=== PATIENT | male | born 1985 | race Caucasian/White ===

== ENCOUNTER → 2018-04-25 | Outpatient (CLI) | payer OTHER ==
--- NOTE | 2018-04-25 14:51 | XR ---
EXAMINATION TYPE: XR lumbar spine 2 or 3V DATE OF EXAM: 04/25/2018 CLINICAL HISTORY: Low back pain due to injury one day ago. TECHNIQUE: Frontal and lateral images of the lumbar spine are obtained. COMPARISON: None FINDINGS: There are 5 lumbar type vertebral bodies identified. The lumbar spine shows satisfactory alignment without evidence of acute fracture or dislocation. Vertebral body heights and disk space he ights are within normal limits. No significant spurring is seen. The overlying soft tissue appears u nremarkable. IMPRESSION: No acute fracture or dislocation is seen in the lumbar spine.
== END | disposition home or self-care (01) ==
LOC: RADXRMAIN 14:12
PROVIDERS: ATTEND Emergency Medicine
DX: S33.5XXA Sprain of ligaments of lumbar spine, initial encounter (principal)
CPT/HCPCS: 72100

== ENCOUNTER → 2019-04-22 | Outpatient (CLI) | payer BC ==
--- NOTE | 2019-04-22 16:54 | CT ---
EXAMINATION TYPE: CT wrist RT wo con DATE OF EXAM: 04/22/2019 COMPARISON: None HISTORY: Pain Rt wrist CT DLP: 76.4 mGycm Automated exposure control for dose reduction was used. TECHNIQUE: Axial images 2 mm thick sections. Reconstructed images in the coronal and sagittal planes. FINDINGS: A screw transverses a scaphoid fracture. There are smooth margins along the old fracture line. Findin gs are compatible with nonunion of the fracture. There is some mild prominence of the scapholunate space adjacent to the radius which could indicate a scapholunate ligament disruption. No additional fractures are evident. IMPRESSION: NONUNION OF THE MID SCAPHOID FRACTURE WITH A SCREW TRANSVERSING THE OLD FRACTURE LINE.
== END ==
LOC: RADCTMAIN 08:02
PROVIDERS: ATTEND Orthopaedic Surgery
DX: S62.001K Unspecified fracture of navicular [scaphoid] bone of right wrist, subsequent encounter for fracture with nonunion (principal)

== ENCOUNTER → 2019-05-21 | Outpatient (CLI) | payer BC | END | disposition home or self-care (01) | LOC: LABWHC1 11:33 | PROVIDERS: ATTEND Orthopaedic Surgery | DX: E55.9 Vitamin D deficiency, unspecified (principal); M25.531 Pain in right wrist; S62.024D Nondisplaced fracture of middle third of navicular [scaphoid] bone of right wrist, subsequent encounter for fracture with routine healing; Z48.89 Encounter for other specified surgical aftercare | CPT/HCPCS: 36415; 82306 ==

== ENCOUNTER → 2019-08-26 | Outpatient (CLI) | payer BC ==
--- NOTE | 2019-08-26 14:35 | CT ---
EXAMINATION TYPE: CT wrist RT wo con DATE OF EXAM: 08/26/2019 COMPARISON: 04/22/2019 HISTORY: 34-year-old male with right wrist pain after fracture and surgery. TECHNIQUE: Contiguous axial scanning of the right without IV contrast. Coronal and sagittal reconstru ctions performed. 3-D reconstructions generated on a dedicated independent workstation. CT DLP: 223 mGycm Automated exposure control for dose reduction was used. FINDINGS: Focal lucency within the distal radial metaphysis suggesting site of bone graft harvest. Seems to be some widening at the scapholunate interval that could reflect injury to the scapholunate ligament. Some TFC calcifications and minimal synovial calcifications are present. Removal of the previous fixation screw with the placement of a new screw across the patient's mid sca phoid waist fracture. Bony bridging is seen across the mid aspect of the fracture but with persistent fracture lucency seen along the dorsal and volar aspects. Osteopenia. IMPRESSION: 1. BONE GRAFT HARVESTING SITE DISTAL RADIAL METAPHYSIS. 2. REMOVAL OF THE PREVIOUS FIXATION SCREW. PLACEMENT OF A NEW SCREW ACROSS THE MID SCAPHOID WAIST FRA CTURE. PARTIAL BONY BRIDGING IS PRESENT ALONG THE MID ASPECT OF THE FRACTURE WITH PERSISTENT FRACTURE LINE SEEN ALONG BOTH THE DORSAL AND VOLAR ASPECTS. 3. THERE MAY BE SOME WIDENING AT THE SCAPHOLUNATE INTERVAL RAISING POSSIBILITY OF SCAPHOLUNATE LIGAME NT INJURY.
== END | disposition home or self-care (01) ==
LOC: RADCTMAIN 12:24
PROVIDERS: ATTEND Orthopaedic Surgery
DX: S62.024D Nondisplaced fracture of middle third of navicular [scaphoid] bone of right wrist, subsequent encounter for fracture with routine healing (principal); Z48.89 Encounter for other specified surgical aftercare

== ENCOUNTER → 2019-09-02 | Outpatient (CLI) | payer BC ==
[2019-09-02 07:00] LABS: HCT 46.6 % (39.0-53.0); HGB 15.7 gm/dL (13.0-17.5); MCH 30.6 pg (25.0-35.0); MCHC 33.7 g/dL (31.0-37.0); MCV 90.8 fL (80.0-100.0); Mean Platelet Volume 6.7; Platelet Count 277 k/uL (150-450); RBC 5.13 m/uL (4.30-5.90); RDW 12.4 % (11.5-15.5)
[2019-09-02 08:26] LABS: Appearance,Urine Clear (Clear); Bilirubin,Urine Negative (Negative); Blood,Urine Negative (Negative); Color,Urine Yellow; Glucose,Urine (UA) Negative (Negative); Ketones,Urine Negative (Negative); Leukocyte Esterase,Urine Negative (Negative); Nitrite,Urine Negative (Negative); PH, Urine 5.5 (5.0-8.0); Protein,Urine Negative (Negative); Specific Gravity,Urine 1.028 (1.001-1.035); Urobilinogen,Urine <2.0 mg/dL (<2.0)
[2019-09-02 10:36] LABS: African American GFR (CKD) 127.8 (60.0-200.0); Albumin 4.4 g/dL (3.80-4.90); Albumin/Globulin Ratio 2.1 (1.60-3.17); Anion Gap 6.9 mmol/L (4.00-12.00); BUN/Creat Ratio 16.67 Ratio (12.00-20.00); Carbon Dioxide 28.1 mmol/L (21.6-31.8); Globulin 2.1 g/dL (1.6-3.3); Non-African American GFR(CKD) 110.3 (60.0-200.0); Phosphorus 5.1 mg/dL (2.4-5.1); Total Bilirubin 0.8 mg/dL (0.3-1.2); Total Protein 6.5 g/dL (6.2-8.2)
== END | disposition home or self-care (01) ==
LOC: LABWHC1 06:38
PROVIDERS: ATTEND Orthopaedic Surgery
DX: S62.024D Nondisplaced fracture of middle third of navicular [scaphoid] bone of right wrist, subsequent encounter for fracture with routine healing (principal); M25.531 Pain in right wrist; Z48.89 Encounter for other specified surgical aftercare
CPT/HCPCS: 36415; 80053; 81003; 82306; 82310; 82652; 83970; 84100; 85027

== ENCOUNTER → 2020-05-23 | Outpatient (CLI) | payer BC ==
--- NOTE | 2020-05-23 11:48 | CT ---
EXAMINATION TYPE: CT wrist RT wo con DATE OF EXAM: 05/23/2020 COMPARISON: 08/26/1999 HISTORY: Pain Rt Wrist CT DLP: 79.[address] of the right wrist with reconstruction imaging. TECHNIQUE: Unenhanced CT of the right shoulder was performed with bone and soft tissue window setting s submitted in the axial coronal and sagittal planes. At a separate workstation 3-[id number] TR imaging was o btained. FINDINGS: Previously Noted scaphoid waist fracture with screw fixation redemonstrated with evidence of partial nonunion. Focal lucency noted distal radial metaphysis compatible with bone graft harvest site. Focal lucency within the lunate compatible with bone cyst. No evidence for acute fracture at this time. Sc apholunate widening noted down measuring approximately 4 mm may reflect ligamentous injury. IMPRESSION: 1. 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
== END | disposition home or self-care (01) ==
LOC: RADCTMAIN 10:44
PROVIDERS: ATTEND Orthopaedic Surgery
DX: Z47.89 Encounter for other orthopedic aftercare (principal); S62.024K Nondisplaced fracture of middle third of navicular [scaphoid] bone of right wrist, subsequent encounter for fracture with nonunion; Z98.890 Other specified postprocedural states

== ENCOUNTER → 2021-10-23 | Outpatient (CLI) | payer BC ==
--- NOTE | 2021-10-23 12:17 | EST ---
EXERCISE STRESS AGE: 36 SEX: M HT: 6'4" WT: 190 lbs. PROTOCOL: Shahbaz STAGE: 5 DURATION OF EXERCISE: 15:00 HEART RATE REST: 66 BLOOD PRESSURE REST: 143/100 MAXIMUM HEART RATE ACHIEVED: 181 MAXIMUM BLOOD PRESSURE: 196/92 85% MPHR: 156 100% MPHR: 183 METS: 14.9 INDICATIONS: Chest pain CLINICAL INFORMATION: Baseline EKG revealed normal sinus rhythm without significant ST-T changes. Patient walked for 15 minutes on a standard Shahbaz protocol, achieved a maximal heart rate of 183 beats per minute, which is 100% of predicted maximal. There was a lot of baseline artifact as patient exercised, but no ST-segment changes to indicate ischemia. He did not have any angina. There was no arrhythmia. By EKG criteria, this is a negative stress test with excellent exercise capacity. FINAL IMPRESSION: Excellent exercise capacity with a negative stress test by EKG criteria. MMANNABELLEL / VALENTINAN: [id number] /
== END | disposition home or self-care (01) ==
LOC: RADNMMAIN 07:52
PROVIDERS: ATTEND Family Medicine
DX: R07.9 Chest pain, unspecified (principal)
CPT/HCPCS: 93017